=== PATIENT | female | born 1980 | race Caucasian/White ===

== ENCOUNTER 2019-05-16 10:47 | Emergency (ER) | payer MEDICARE, MEDICAID ==
[~2019-05-16] VITALS: Ht 167.6 cm; Wt 113.6 kg
[~2019-05-16 10:47] MED LIST: CIPR-260 PO
[2019-05-16 10:50] VITALS: BP 149/93
[2019-05-16] MEDS ORDERED: DIPH25CA83 PO (12:11)
[2019-05-16] MEDS ORDERED: PRED20TA PO (12:11)
== END 2019-05-16 12:30 | disposition home or self-care (01) ==
LOC: ER 10:47
DX: L23.9 Allergic contact dermatitis, unspecified cause (principal); Z88.0 Allergy status to penicillin; Z88.2 Allergy status to sulfonamides; Z79.899 Other long term (current) drug therapy; Z79.2 Long term (current) use of antibiotics; Z90.710 Acquired absence of both cervix and uterus; Z98.890 Other specified postprocedural states
CPT/HCPCS: 99284

== ENCOUNTER 2020-03-28 12:12 | Day surgery (SDC) | payer MEDICARE, MEDICAID ==
[2020-03-20 11:29] LABS: BASOPHILS # (AUTO) 0.1 X10'3 (0-0.2); BASOPHILS % (AUTO) 0.7 % (0-1); EOSINOPHILS # (AUTO) 0.1 X10'3 (0-0.9); LYMPHOCYTES # (AUTO) 2.1 X10'3 (1.1-4.8); LYMPHOCYTES % (AUTO) 23.2 % (21-51); MEAN CORPUSCULAR HEMOGLOBIN 29.3 PG (27.0-31.0); MEAN CORPUSCULAR HGB CONC 32.7 g/dL (33.0-36.5); MEAN CORPUSCULAR VOLUME 89.7 FL (78-98); MEAN PLATELET VOLUME 8.5 FL (7.4-10.4); MONOCYTES # (AUTO) 0.8 X10'3 (0-0.9); MONOCYTES % (AUTO) 8.5 % (2-12); NEUTROPHILS # (AUTO) 5.9 X10'3 (1.8-7.7); NEUTROPHILS % (AUTO) 66.6 % (42-75); PRE OP HEMATOCRIT 49.8 % (35.0-45.0); PRE OP HEMOGLOBIN 16.3 g/dL (12.0-16.0); PRE OP PLATELET COUNT 422 X10'3 (140-440); RED BLOOD COUNT 5.56 X10'6 (4.20-5.60); RED CELL DISTRIBUTION WIDTH 14.9 % (11.5-14.5)
[2020-03-20 11:41] LABS: ALKALINE PHOSPHATASE 131 IU/L (46-116); BLOOD UREA NITROGEN 11 MG/DL (7-18); BUN/CREATININE RATIO 16.7 (6.6-38.0); CHLORIDE 105 MMOL/L (99-107); CREATININE 0.66 MG/DL (0.40-0.90); PRE OP ALT 40 U/L (30-65); PRE OP ANION GAP 6 (8-16); PRE OP AST 24 U/L (10-37); PRE OP BILIRUB, TOTAL 0.4 MG/DL (0.0-1.0); PRE OP GLUCOSE 100 MG/DL (70-104); PRE OP POTASSIUM 3.8 MMOL/L (3.4-5.1); PRE OP SODIUM 141 MMOL/L (135-145); TOTAL CARBON DIOXIDE 29.9 MMOL/L (24-32); eGFR > 90 ML/MIN
[2020-03-28] VITALS (8 sets, daily range): BP systolic 136–172; BP diastolic 82–92
[~2020-03-28] VITALS: Ht 167.6 cm; Wt 104.3 kg
[~2020-03-28 12:12] MED LIST changes: -CIPR-260 PO; +GABA600T13 PO; +LIPA1CAP18 PO; +TEST200V10 SUBCUT; +clindamycin-Cleocin 900mg/D5W 50 ML IV ONE; +famotidine 20mg tablet PO ONE; +ringers solution, lacted 1,000 ML IV SCH; +vancomycin 1,500 MG in NS 300ml IV soln IV ONE
[2020-03-28] MEDS ORDERED: proCHLORperazine 10 MG/2 ml inj IV PRN (14:50)
[2020-03-28] MEDS ORDERED: meperidine/PF 25mg/ml syringe IV PRN ×3 (14:50)
[2020-03-28] MEDS ORDERED: labetalol 20mg/4ml (5mg/ml) syringe IV PRN (14:50)
[2020-03-28] MEDS ORDERED: HYDROmorphone inj. 0.5 MG/0.5 ML DISP.SYRIN IV PRN ×2 (14:50)
[2020-03-28] MEDS ORDERED: acetaminophen 1,000mg/100ml IV 100 ML IV PRN (14:50)
[2020-03-28] MEDS ORDERED: ringers solution, lacted 1,000 ML IV SCH (14:50)
[2020-03-28] MEDS ORDERED: hydrALAZINE 20mg/ml inj. IV PRN (14:50)
[2020-03-28] MEDS ORDERED: ondansetron/PF 4mg/2ml inj IV PRN (14:50)
[2020-03-28] MEDS ORDERED: methylPREDNISolone sod succ 125mg/2ml vial ONE (15:31)
[2020-03-28] MEDS ORDERED: BUPIVAcaine/PF 2.5 mg/ml (0.25%) 30ml vial ONE (15:31)
[2020-03-28] MEDS ORDERED: sevoflurane 250ml liquid IH ONE (15:38)
[2020-03-28] MEDS ORDERED: LIDOcaine 0.5% (5mg/ml) 50ml vial ONE (15:39)
[2020-03-28] MEDS ORDERED: fentaNYL/PF 50MCG/1 ML 2ML syringe ONE (15:41)
[2020-03-28] MEDS ORDERED: MIDAZolam 5mg/5ml vial ONE (15:42)
[2020-03-28] MEDS ORDERED: propofol inj 20 ML IV ONE ×2 (16:12)
[2020-03-28] MEDS ORDERED: dexamethasone sod phosphate 4mg/ml inj. ONE (16:16)
[2020-03-28] MEDS ORDERED: ondansetron/PF 4mg/2ml inj ONE (16:16)
--- NOTE | 2020-03-28 16:42 | NUR ---
Received from OR via BED, accompanied by Anesthesiologist DR GARRETT and report given by Anesthesiologist. 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 Addendum: 03/28/20 at 1724 by Noemy Srivastava RN Amended: Links added.
--- NOTE | 2020-03-28 18:10 | NUR ---
PT UP AND ABLE TO AMBULATE SAFELY, VOIDED. D/C INSTRUCTIONS GIVEN AND GONE OVER W/PT WHO VERBALIZED UNDERSTANDING, PT D/CD TO HOME VIA W/C TO PRIVATE VEHICLE W/O INCIDENT. Addendum: 03/28/20 at 1842 by Noemy Srivastava RN Amended: Links added.
== END 2020-03-28 18:12 | disposition home or self-care (01) ==
LOC: PAS 12:12
PROVIDERS: ATTEND Orthopaedic Surgery
DX: M65.4 Radial styloid tenosynovitis [de Quervain] (principal); S56.511A Strain of other extensor muscle, fascia and tendon at forearm level, right arm, initial encounter; M19.032 Primary osteoarthritis, left wrist; G89.4 Chronic pain syndrome; F41.9 Anxiety disorder, unspecified; G47.33 Obstructive sleep apnea (adult) (pediatric); I10 Essential (primary) hypertension; J45.909 Unspecified asthma, uncomplicated; E66.01 Morbid (severe) obesity due to excess calories; Z68.38 Body mass index [BMI] 38.0-38.9, adult; Z88.0 Allergy status to penicillin; Z88.2 Allergy status to sulfonamides; Z88.8 Allergy status to other drugs, medicaments and biological substances; Z87.891 Personal history of nicotine dependence; Z20.828 Contact with and (suspected) exposure to other viral communicable diseases; Z98.890 Other specified postprocedural states; Z90.710 Acquired absence of both cervix and uterus; Z79.899 Other long term (current) drug therapy; X58.XXXA Exposure to other specified factors, initial encounter; Y93.89 Activity, other specified; Y92.89 Other specified places as the place of occurrence of the external cause; Y99.8 Other external cause status
CPT/HCPCS: 25000; 25270; 36415; 80053; 82948; 85025; 87635; 93005; A6222; J1100; J2001; J2250; J2405; J2704; J2930; J3010; J3370; J3490; J7040; A4215; A4618; A6449; A7000; J7120